=== PATIENT | male | born 1970 | race Caucasian/White ===

== ENCOUNTER 2016-10-16 11:17 | Day surgery (SDC) | payer MEDICAID ==
[2016-10-13 12:16] VITALS: BMI 24.5
[2016-10-16] MEDS ORDERED: Lactated Ringer's 1,000 ML IV ONE (14:00)
[2016-10-16] MEDS ORDERED: Lidocaine 1% Inj (20ml) ONE (14:04)
[2016-10-16] MEDS ORDERED: ceFAZolin IV 1 gm in Dextrose 1 GM/50 ML BAG IVPB ONE (14:04)
[2016-10-16] MEDS ORDERED: Bupivacaine-Epi 0.25%-1:200,000 PF Inj ONE (14:04)
[2016-10-16] MEDS ORDERED: Midazolam 2 MG/2 ML VIAL ONE (14:15)
[2016-10-16] MEDS ORDERED: Propofol 10 mg/ml Inj (20 ML) ONE (14:15)
[2016-10-16] MEDS ORDERED: HYDROmorphone 0.5 mg/0.5 ml ISec IVP PRN (14:42)
--- NOTE | 2016-10-16 14:44 | PCM.SURG1 ---
Surgeon's Initial Post Op Note - Surgeon's Notes Surgeon: Samantha Rae MD Industrial Refrigeration Mechanic: Laquita Guerra PGY II; Kira Duenas PGY1 Pre-Operative Diagnosis: Lipoma of proximal, medial right forearm Operative Findings: see Op report Post-Operative Diagnosis: Lipoma of proximal, medial right forearm Operation Performed: Excision of lipoma of proximal medial right forearm Specimen/Specimens Removed: Lipoma Estimated Blood Loss: EBL {In ML}: 10 Blood Products Given: N/A Drains Used: No Drains Post-Op Condition: Good Date of Surgery/Procedure: 10/16/16 Time of Surgery/Procedure: 14:42
[2016-10-16] MEDS ORDERED: Lactated Ringer's 1,000 ML IV SCH (14:45)
[2016-10-16 15:58] VITALS: BP 119/67; PULSE 68; RESP 20; TEMP 97.8; O2SAT 99
--- NOTE | 2016-10-17 02:00 | OP ---
PROCEDURE DATE: 10/16/2016 PREOPERATIVE DIAGNOSIS: Right forearm lipoma, 3 x 3 cm. POSTOPERATIVE DIAGNOSIS: Right forearm lipoma, 3 x 3 cm. PROCEDURE: 1. Excision of right forearm lipoma. 2. Layered closure of the wound, 3 x 2 cm size. SURGEON: Dr. Rae. DIRECTOR CORPORATE COMPLIANCE: Christopher Guerra, PGY-1 resident TYPE OF ANESTHESIA: Local anesthesia plus sedation. INTRAOPERATIVE FINDINGS: The patient had intraoperative findings, the patient had a 3 x 3 cm circular lipoma of the right forearm posteriorly and on intraoperative test, this 46-year-old male was diagnosed with lipoma of the right forearm on the posterior aspect, and the patient was considered for excision, brought to the OR, placed on the operating table. ESTIMATED BLOOD LOSS: Around 10 mL. DRAIN: None. PATHOLOGY: Lipoma was sent for the pathology. COMPLICATIONS: None. DESCRIPTION OF PROCEDURE: After induction of the sedation, the right forearm was prepped and draped in the usual sterile fashion. Local anesthesia was injected, a transverse 3 cm incision was made after incising the skin and subcutaneous tissue. The upper and lower flap was created and lipoma was excised from the underlying tissue. Lipoma appeared to be adhesed to the underlying muscles and after complete excision, the wound was irrigated and the wound was closed in multiple layers subcu with 3-0 Vicryl, another layer of subcu with 3-0 Vicryl, skin with a 4-0 Monocryl and dry sterile dressing was applied. The patient tolerated the procedure well. Count of the instrument was correct. There was no apparent complication. Juma Rae MD
== END 2016-10-16 15:58 | disposition home or self-care (01) ==
LOC: C.SDS 11:17
PROVIDERS: ATTEND Surgery Surgical Critical Care
DX: D17.21 Benign lipomatous neoplasm of skin and subcutaneous tissue of right arm (principal)
CPT/HCPCS: 11404; 88304; 88342; J0690; J2250; J2704; J3010; J7120